=== PATIENT | male | born 1980 | race Caucasian/White ===

== ENCOUNTER 2019-01-10 19:49 | Emergency (ER) | payer SELFPAY ==
[2019-01-10 19:54] VITALS: BP 139/89
--- NOTE | 2019-01-10 20:06 | EDPHY ---
H & P Stated Complaint: tooth pain x1 day Source: Patient - Personal History Current Tetanus/Diphtheria Vaccine: Yes Current Tetanus Diphtheria and Acellular Pertussis (TDAP): Yes - Medical/Surgical History Hx Asthma: No Hx Chronic Respiratory Disease: No Hx Diabetes: No Hx Cardiac Disease: No Hx Renal Disease: No Hx Cirrhosis: No Hx Alcoholism: No Hx HIV/AIDS: No Hx Splenectomy or Spleen Trauma: No Other PMH: none - Social History Smoking Status: Never smoked Time Seen by Provider: 01/10/19 20:06 HPI/ROS: HPI CHIEF COMPLAINT: Dental pain HISTORY OF PRESENT ILLNESS: Patient 38-year-old male, visiting from out of town , presents to the emergency room with dental pain. Tooth # 29 is giving him dental decay and pain. This started hurting him 2 days ago. Denies fever, denies trouble swallowing. Tooth # 29 is decayed Past Medical History: Denies significant medical history Past Surgical History: Denies significant surgical history Social History: Denies drugs alcohol tobacco. Family History: Noncontributory ROS REVIEW OF SYSTEMS: 10 Systems were reviewed and negative with the exception of the elements mentioned in the history of present illness. Exam Constitutional triage nursing summary reviewed, vital signs reviewed, awake/ alert. Eyes normal conjunctivae and sclera, EOMI, PERRLA. HENT oropharynx: Tooth # 29 decayed, fractured. No gumline abscess. normal inspection, atraumatic, moist mucus membranes, no epistaxis, neck supple / no meningismus, no raccoon eyes. Respiratory clear to auscultation bilaterally, normal breath sounds, no respiratory distress, no wheezing. Cardiovascular rate normal, regular rhythm, no murmur, no edema, distal pulses normal. Gastrointestinal soft, non-tender, no rebound, no guarding, normal bowel sounds, no distension, no pulsatile mass. Genitourinary no CVA tenderness. Musculoskeletal no midline vertebral tenderness, full range of motion, no calf swelling, no tenderness of extremities, no meningismus, good pulses, neurovascularly intact. Skin pink, warm, & dry, no rash, skin atraumatic. Neurologic awake, alert and oriented x 3, AAOx3, moves all 4 extremities equally, motor intact, sensory intact, CN II-XII intact, normal cerebellar, normal vision, normal speech. Psychiatric normal mood/affect. Heme/Lymph/Immune no lymphadenopathy. Differential Diagnosis: Includes but is not limited to in a particular order dental decay, dental caries, dental fracture, abscess, pulpitis Medical Decision Making: Plan for this patient patient asking for dental block , will perform dental block, Tylenol 1 g, Pen-VK. He states he is going to follow up with his dentist when he returns to [place] at home. Re-evaluation: (Yunior Bagley) Constitutional: Initial Vital Signs Temperature (C) 37.0 C 01/10/19 19:52 Heart Rate 88 01/10/19 19:52 Respiratory Rate 16 01/10/19 19:52 Blood Pressure 139/89 H 01/10/19 19:52 O2 Sat (%) 94 01/10/19 19:52 O2 Delivery Mode Room Air Allergies/Adverse Reactions: No Known Allergies Allergy (Unverified 01/10/19 19:54) Home Medications: Medication Instructions Recorded Ibuprofen [Motrin (*)] 800 mg PO Q6-8PRN #10 tab 01/10/19 Penicillin V Potassium [Penicillin 500 mg PO BID #14 tab 01/10/19 VK] Medical Decision Making Procedures: I was asked to see and evaluate this patient for a dental block for pain control. Patient with multiple obvious dental caries. Verbal consent was obtained, risks to include but not limited to bleeding, infection, inadequate anesthesia were discussed. Patient wishes to proceed. Procedure: Regional anesthesia. A dental block was performed for what indication- right lower dental pain. The block was performed with 0.5% bupivacaine and 1% lidocaine. The patient experienced complete pain relief. The procedure was performed by myself. ( Galilea Haro) Departure - Departure Disposition: Home, Routine, Self-Care Clinical Impression: Pain, dental Condition: Good Instructions: Toothache (ED) Additional Instructions: 1. Antibiotics as prescribed. 2. I do recommend you alternate Tylenol and/or Motrin every 6-8 hours for pain control. 3. Follow up with the dentist. Referrals: NONE *PRIMARY CARE P,. [Primary Care Provider] - As per Instructions [facility] [Outside] - As per Instructions [facility] [Outside] - As per Instructions Dental [facility] [Outside] - As per Instructions Dental [facility] [Outside] - As per Instructions Dental [facility] [Outside] - As per Instructions Prescriptions: Ibuprofen [Motrin (*)] 800 mg PO Q6-8PRN #10 tab Penicillin V Potassium [Penicillin VK] 500 mg PO BID #14 tab
[2019-01-10] MEDS ORDERED: PENICILLIN VK 250MG PREPACK#6 BTL TAKEHOME ONE (20:16)
[2019-01-10] MEDS ORDERED: PENICILLIN VK 500 MG TAB PO ONE (20:16)
[2019-01-10] MEDS ORDERED: ACETAMINOPHEN 500 MG TAB PO ONE (20:17)
== END 2019-01-10 20:56 | disposition home or self-care (01) ==
PROC: 3E0X3BZ Introduction of Anesthetic Agent into Cranial Nerves, Percutaneous Approach (ICD-10-PCS; principal; 2019-01-10)
DX: K08.89 Other specified disorders of teeth and supporting structures (principal)